=== PATIENT | female | born 1990 | race Caucasian/White ===

== ENCOUNTER 2022-10-15 14:22 | Emergency (ER) | payer MEDICAID ==
[~2022-10-15] VITALS: Ht 162.6 cm; Wt 92.1 kg
[2022-10-15 14:45] VITALS: BP 103/60
[2022-10-15 17:37] LABS: BASOPHILS # (AUTO) 0.1 K/uL (0.00-0.22); BASOPHILS % (AUTO) 0.7 % (0.0-2.0); EOSINOPHILS # (AUTO) 0.6 K/uL (0-0.4); EOSINOPHILS % (AUTO) 6.5 % (0.0-4.0); HEMATOCRIT 39.1 % (36-48); HEMOGLOBIN 12.9 g/dL (12.0-16.0); LYMPHOCYTES # (AUTO) 3.1 K/uL (2.5-16.5); LYMPHOCYTES % (AUTO) 31.6 % (20.5-51.1); MEAN CORPUSCULAR HEMOGLOBIN 30 pg (27-31); MEAN CORPUSCULAR HGB CONC 33 g/dL (33-37); MEAN CORPUSCULAR VOLUME 90.9 fL (80-94); MONOCYTES # (AUTO) 0.5 K/uL (0.8-1.0); NEUTROPHILS # (AUTO) 5.5 K/uL (1.8-7.7); NEUTROPHILS % (AUTO) 56.2 % (42.2-75.2); PLATELET COUNT (AUTO) 242 K/uL (140-450); RED CELL DISTRIBUTION WIDTH 13.5 % (11.6-13.7); WHITE BLOOD COUNT (AUTO) 9.8 K/uL (4.8-10.8)
[2022-10-15] MEDS ORDERED: KETOROLAC 30 MG/ML VIAL IM ONE (17:50)
[2022-10-15] MEDS ORDERED: DICYCLOMINE HCL LIQUID 20 MG, ALUMINUM HYD/MAG/SIMETHICONE 30 ML, LIDOCAINE VISCOUS 2% ... PO ONE ×3 (17:50)
[2022-10-15] MEDS ORDERED: DICYCLOMINE HCL LIQUID 10 MG/5 ML UDC ONE (17:54)
[2022-10-15] MEDS ORDERED: ALUMINUM HYD/MAG/SIMETHICONE 30 ML UDC ONE (17:54)
[2022-10-15 18:09] LABS: ALBUMIN 3.7 g/dL (3.4-5.0); ANION GAP 12.5 (8-16); CARBON DIOXIDE 26.7 mmol/L (21-32); POTASSIUM 4.2 mmol/L (3.5-5.1); TOTAL BILIRUBIN 0.3 mg/dL (0.0-1.0)
--- NOTE | 2022-10-15 18:35 | NUR ---
PT CALLED BY ALYSE GUZMAN WITH NO ANSWER. PT ELOPED AT THIS TIME.
[2022-10-15 19:09] LABS: APPEARANCE,URINE CLEAR (CLEAR); BILIRUBIN,URINE NEGATIVE (NEGATIVE); BLOOD, URINE 3+ (NEGATIVE); COLOR,URINE YELLOW (YELLOW); LEUKOCYTE ESTERASE ,URINE NEGATIVE (NEGATIVE); NITRITE, URINE NEGATIVE (NEGATIVE); PH,URINE 5.5 (5.0-9.0); UGLUCOSE NEGATIVE (NEGATIVE)
[2022-10-15 19:27] LABS: RBC,URINE 50-80 /HPF (0-5)
--- NOTE | 2022-10-15 22:37 | NUR ---
NOTIFIED BY ADMITTING STAFF PT IS IN LOBBY AND REQUESTING RESULTS. DR. HUYNH NOTIFIED
--- NOTE | 2022-10-15 23:40 | NUR ---
PT CLEARED FOR D/C BY DR. HUYNH. ALL D/C INSTRUCTIONS VERBALIZED TO PT BY DR. HUYNH.
== END 2022-10-15 23:40 | disposition home or self-care (01) ==
LOC: MED 14:22
DX: N93.8 Other specified abnormal uterine and vaginal bleeding (principal); R10.13 Epigastric pain; Z90.49 Acquired absence of other specified parts of digestive tract
CPT/HCPCS: 36415; 76856; 80053; 81001; 81025; 83690; 84703; 85025; 93976; 96372; 99285; J1885; Q0092

== ENCOUNTER 2023-04-15 11:23 | Emergency (ER) | payer MEDICAID, OTHER ==
[~2023-04-15] VITALS: Ht 167.6 cm; Wt 12.2 kg
[2023-04-15 11:35] VITALS: BP 111/67; PULSE 85; RESP 18; TEMP 97.4; O2SAT 98
[2023-04-15 12:16] LABS: APPEARANCE,URINE CLEAR (CLEAR); BILIRUBIN,URINE NEGATIVE (NEGATIVE); BLOOD, URINE NEGATIVE (NEGATIVE); COLOR,URINE YELLOW (YELLOW); LEUKOCYTE ESTERASE ,URINE NEGATIVE (NEGATIVE); NITRITE, URINE NEGATIVE (NEGATIVE); PROTEIN,URINE NEGATIVE (NEGATIVE); UGLUCOSE NEGATIVE (NEGATIVE); UROBILINOGEN,URINE 0.2 EU/dL (0.2 - 1)
[2023-04-15 12:47] LABS: BASOPHILS # (AUTO) 0.1 K/uL (0.00-0.22); BASOPHILS % (AUTO) 0.7 % (0.0-2.0); EOSINOPHILS # (AUTO) 0.4 K/uL (0-0.4); HEMATOCRIT 38.9 % (36-48); LYMPHOCYTES # (AUTO) 2.4 K/uL (2.5-16.5); LYMPHOCYTES % (AUTO) 31.5 % (20.5-51.1); MEAN CORPUSCULAR HEMOGLOBIN 30 pg (27-31); MEAN CORPUSCULAR HGB CONC 33 g/dL (33-37); MONOCYTES # (AUTO) 0.5 K/uL (0.8-1.0); MONOCYTES % (AUTO) 6.9 % (1.7-9.3); NEUTROPHILS # (AUTO) 4.1 K/uL (1.8-7.7); NEUTROPHILS % (AUTO) 54.9 % (42.2-75.2); PLATELET COUNT (AUTO) 225 K/uL (140-450); RED BLOOD CELL COUNT(AUTO) 4.37 MIL/uL (4.20-5.40); RED CELL DISTRIBUTION WIDTH 13.5 % (11.6-13.7); WHITE BLOOD COUNT (AUTO) 7.5 K/uL (4.8-10.8)
[2023-04-15 13:04] LABS: ALBUMIN 3.6 g/dL (3.4-5.0); ANION GAP 10.3 (8-16); CALCIUM 8.5 mg/dL (8.5-10.1); CARBON DIOXIDE 24.8 mmol/L (21-32); CREATININE 0.8 mg/dL (0.6-1.3); POTASSIUM 4.1 mmol/L (3.5-5.1); TOTAL BILIRUBIN 0.4 mg/dL (0.0-1.0); TOTAL PROTEIN, SERUM 8.1 g/dL (6.4-8.2)
[2023-04-15] MEDS ORDERED: KETOROLAC 30 MG/ML VIAL IM ONE (13:40)
[2023-04-15] MEDS ORDERED: IBUP-2213 PO (13:52)
[2023-04-15 14:10] VITALS: BP 111/67; PULSE 85; RESP 18; TEMP 97.4; O2SAT 100
== END 2023-04-15 14:10 | disposition home or self-care (01) ==
LOC: MED 11:23
DX: N94.6 Dysmenorrhea, unspecified (principal); R10.30 Lower abdominal pain, unspecified; Z79.1 Long term (current) use of non-steroidal anti-inflammatories (NSAID)
CPT/HCPCS: 36415; 80053; 81003; 81025; 84702; 85025; 96372; 99283; J1885

== ENCOUNTER 2023-05-01 20:12 | Emergency (ER) | payer OTHER ==
[~2023-05-01] VITALS: Ht 167.6 cm; Wt 92.5 kg
[~2023-05-01 20:12] MED LIST: IBUP-2213 PO
[2023-05-01 20:53] VITALS: BP_SYST 106; BP_SYST 123; BP_DIAS 68; BP_DIAS 76; PULSE 62; RESP 16; TEMP 97.4; O2SAT 100
[2023-05-01 21:29] LABS: APPEARANCE,URINE CLEAR (CLEAR); BILIRUBIN,URINE NEGATIVE (NEGATIVE); BLOOD, URINE 3+ (NEGATIVE); COLOR,URINE YELLOW (YELLOW); LEUKOCYTE ESTERASE ,URINE NEGATIVE (NEGATIVE); NITRITE, URINE NEGATIVE (NEGATIVE); PROTEIN,URINE NEGATIVE (NEGATIVE); UGLUCOSE NEGATIVE (NEGATIVE); UROBILINOGEN,URINE 0.2 EU/dL (0.2 - 1)
[2023-05-01 21:33] LABS: RBC,URINE 11-20 (MOD) /HPF (0-5)
[2023-05-01 21:34] LABS: BACTERIA,URINE 1+ /HPF (None Seen); MUCUS,URINE 1+ /LPF (None Seen); SQUAMOUS EPITHELIAL CELL,UR 0-3 (FEW) /LPF (0-3 (FEW)); TRICHOMONAS,URINE None Seen /HPF (None Seen); WBC,URINE 0-5 /HPF (0-5); YEAST,URINE None Seen /HPF (None Seen)
[2023-05-01] MEDS ORDERED: ACETAMINOPHEN 325 MG TAB PO ONE (23:00)
[2023-05-01] MEDS ORDERED: NACL 0.9% 1,000 ML IV ONE (23:05)
[2023-05-01 23:15] LABS: BASOPHILS % (AUTO) 0.5 % (0.0-2.0); EOSINOPHILS # (AUTO) 0.4 K/uL (0-0.4); EOSINOPHILS % (AUTO) 5.4 % (0.0-4.0); HEMATOCRIT 35.6 % (36-48); HEMOGLOBIN 11.9 g/dL (12.0-16.0); LYMPHOCYTES # (AUTO) 3.2 K/uL (2.5-16.5); LYMPHOCYTES % (AUTO) 40.4 % (20.5-51.1); MEAN CORPUSCULAR HEMOGLOBIN 30 pg (27-31); MEAN CORPUSCULAR HGB CONC 33 g/dL (33-37); MONOCYTES # (AUTO) 0.6 K/uL (0.8-1.0); MONOCYTES % (AUTO) 7.6 % (1.7-9.3); NEUTROPHILS # (AUTO) 3.7 K/uL (1.8-7.7); NEUTROPHILS % (AUTO) 46.1 % (42.2-75.2); PLATELET COUNT (AUTO) 188 K/uL (140-450); RED BLOOD CELL COUNT(AUTO) 3.96 MIL/uL (4.20-5.40); RED CELL DISTRIBUTION WIDTH 13.8 % (11.6-13.7)
[2023-05-02 00:46] VITALS: O2SAT 100
[2023-05-02 02:51] VITALS: O2SAT 100
== END 2023-05-02 03:39 | disposition home or self-care (01) ==
LOC: MED 20:12
DX: O46.91 Antepartum hemorrhage, unspecified, first trimester (principal); Z3A.10 10 weeks gestation of pregnancy; Z79.1 Long term (current) use of non-steroidal anti-inflammatories (NSAID); Z98.890 Other specified postprocedural states
CPT/HCPCS: 36415; 76817; 81001; 81025; 84702; 85025; 86900; 86901; 96360; 99284; J7030; Q0092

== ENCOUNTER 2024-03-03 19:07 | Emergency (ER) | payer OTHER ==
[~2024-03-03] VITALS: Ht 165.1 cm; Wt 95.3 kg
[2024-03-03 19:22] VITALS: BP 104/64; PULSE 74; TEMP 97.4
[2024-03-03 20:43] LABS: APPEARANCE,URINE CLEAR (CLEAR); BILIRUBIN,URINE NEGATIVE (NEGATIVE); BLOOD, URINE NEGATIVE (NEGATIVE); COLOR,URINE YELLOW (YELLOW); LEUKOCYTE ESTERASE ,URINE NEGATIVE (NEGATIVE); NITRITE, URINE NEGATIVE (NEGATIVE); PROTEIN,URINE NEGATIVE (NEGATIVE); UGLUCOSE NEGATIVE (NEGATIVE); UROBILINOGEN,URINE 0.2 EU/dL (0.2 - 1)
[2024-03-03 21:04] LABS: BASOPHILS % (AUTO) 0.4 % (0.0-2.0); EOSINOPHILS # (AUTO) 0.5 K/uL (0-0.4); EOSINOPHILS % (AUTO) 5.8 % (0.0-4.0); HEMATOCRIT 37.5 % (36-48); HEMOGLOBIN 12.5 g/dL (12.0-16.0); LYMPHOCYTES # (AUTO) 2.7 K/uL (2.5-16.5); MEAN CORPUSCULAR HEMOGLOBIN 30 pg (27-31); MEAN CORPUSCULAR HGB CONC 33 g/dL (33-37); MEAN CORPUSCULAR VOLUME 90.1 fL (80-94); MONOCYTES # (AUTO) 0.6 K/uL (0.8-1.0); MONOCYTES % (AUTO) 7.9 % (1.7-9.3); NEUTROPHILS # (AUTO) 4.1 K/uL (1.8-7.7); NEUTROPHILS % (AUTO) 51.9 % (42.2-75.2); PLATELET COUNT (AUTO) 243 K/uL (140-450); RED BLOOD CELL COUNT(AUTO) 4.16 MIL/uL (4.20-5.40); RED CELL DISTRIBUTION WIDTH 13.8 % (11.6-13.7)
[2024-03-03 21:25] LABS: ALBUMIN 3.5 g/dL (3.4-5.0); ANION GAP 10.4 (8-16); CALCIUM 8.9 mg/dL (8.5-10.1); CARBON DIOXIDE 29.4 mmol/L (21-32); CREATININE 0.9 mg/dL (0.6-1.3); POTASSIUM 3.8 mmol/L (3.5-5.1); TOTAL BILIRUBIN 0.3 mg/dL (0.0-1.0); TOTAL PROTEIN, SERUM 8.1 g/dL (6.4-8.2)
[2024-03-03 21:59] VITALS: BP 116/76; PULSE 74; RESP 16; TEMP 97.4; O2SAT 98
== END 2024-03-03 21:59 | disposition home or self-care (01) ==
LOC: MED 19:07
DX: O20.0 Threatened abortion (principal); Z79.899 Other long term (current) drug therapy; Z3A.01 Less than 8 weeks gestation of pregnancy
CPT/HCPCS: 36415; 76801; 80053; 81003; 81025; 84702; 85025; 86886; 86900; 86901; 99284; Q0092